=== PATIENT | male | born 2000 | race Caucasian/White ===

== ENCOUNTER 2021-10-28 20:03 | Emergency (ER) | payer OTHER ==
[2021-10-28] MEDS ORDERED: HYDROmorphone 1 MG/ML Syringe IM ONE (20:13)
[2021-10-28] MEDS ORDERED: Ondansetron 4 MG/2 ML SDV IVPUSH ONE (20:18)
[2021-10-28] MEDS ORDERED: HYDROmorphone 1 MG/ML Syringe IVPUSH ONE (20:18)
[2021-10-28 22:13] LABS: CARBON DIOXIDE,CO2 26.4 mmol/L (21.0-32.0); POTASSIUM,K 4.2 mmol/L (3.5-5.1)
== END 2021-10-28 20:29 | disposition left against medical advice (07) ==
LOC: MW.ED 20:03
DX: R07.9 Chest pain, unspecified (principal); V29.9XXA Motorcycle rider (driver) (passenger) injured in unspecified traffic accident, initial encounter; Y92.410 Unspecified street and highway as the place of occurrence of the external cause
CPT/HCPCS: 36415; 80053; 83690; 83735; 84484; 85025; 85610; 85730; 99285

== ENCOUNTER 2021-10-28 21:23 | Emergency (ER) | payer OTHER ==
[2021-10-28] MEDS ORDERED: Ondansetron 4 MG/2 ML SDV IVPUSH ONE (21:26)
[2021-10-28] MEDS ORDERED: Sodium Chloride 0.9% 1,000 ML IV ONE (21:26)
[2021-10-28] MEDS ORDERED: HYDROmorphone 1 MG/ML Syringe IVPUSH ONE ×2 (21:26→23:39)
[2021-10-28] MEDS ORDERED: Iopamidol 755 MG/ML 500 ML Multipack Bottle IVPUSH ONE (23:11)
== END 2021-10-29 00:35 | disposition home or self-care (01) ==
LOC: MW.ED 21:23
DX: Z04.1 Encounter for examination and observation following transport accident (principal); V29.9XXA Motorcycle rider (driver) (passenger) injured in unspecified traffic accident, initial encounter; Y92.410 Unspecified street and highway as the place of occurrence of the external cause
CPT/HCPCS: 70450; 71045; 71260; 72125; 72128; 72131; 74177; 93005; 96361; 96374; 96375; 96376; 99284; J1170; J2405; J7030; Q9967

== ENCOUNTER 2022-01-21 17:51 | Emergency (ER) | payer OTHER ==
[2022-01-21] MEDS ORDERED: EPINEPHrine 1 MG/1 ML Amp IM ONE (17:54)
[2022-01-21] MEDS ORDERED: methylPREDNISolone Sodium Succinate 125 MG/2 ML SDV IVPUSH ONE (17:57)
[2022-01-21] MEDS ORDERED: Albuterol/Ipratropium 3.0-0.5 MG/3 ML Neb Soln ONE ×2 (17:58)
[2022-01-21] MEDS ORDERED: Famotidine 20 MG Tab PO ONE (17:58)
[2022-01-21] MEDS ORDERED: diphenhydrAMINE 50 MG/ML SDV IVPUSH ONE (17:59)
[2022-01-21] MEDS ORDERED: Ondansetron 4 MG/2 ML SDV IVPUSH ONE (17:59)
[2022-01-21] MEDS ORDERED: Ondansetron 4 MG/2 ML SDV ONE (18:00)
[2022-01-21] MEDS ORDERED: diphenhydrAMINE 50 MG/ML SDV ONE (18:00)
[2022-01-21] MEDS ORDERED: Famotidine 20 MG/2 ML SDV IVPUSH ONE (18:07)
== END 2022-01-21 19:44 | disposition left against medical advice (07) ==
LOC: MW.ED 17:51
DX: T78.01XA Anaphylactic reaction due to peanuts, initial encounter (principal); Z79.899 Other long term (current) drug therapy; Z91.010 Allergy to peanuts
CPT/HCPCS: 96372; 96374; 96375; 99283; J0171; J1200; J2405; J2930; J3490; J7620-GY